=== PATIENT | female | born 1950 | race Caucasian/White ===

== ENCOUNTER 2019-06-23 11:00 | Outpatient (CLI) | payer MEDICARE, BC ==
[2019-06-23 12:11] LABS: BASOPHILS # (AUTO) 0.1 X10'3 (0-0.2); BASOPHILS % (AUTO) 0.8 % (0-1); EOSINOPHILS # (AUTO) 0.2 X10'3 (0-0.9); EOSINOPHILS % (AUTO) 2.4 % (0-6); HEMOGLOBIN 14.5 g/dl (12.0-16.0); LYMPHOCYTES # (AUTO) 1.3 X10'3 (1.1-4.8); LYMPHOCYTES % (AUTO) 19.1 % (21-51); MEAN CORPUSCULAR HEMOGLOBIN 28.4 PG (27.0-31.0); MEAN CORPUSCULAR VOLUME 85.9 FL (78-98); MEAN PLATELET VOLUME 7.6 FL (7.4-10.4); MONOCYTES # (AUTO) 0.7 X10'3 (0-0.9); MONOCYTES % (AUTO) 10.2 % (2-12); NEUTROPHILS # (AUTO) 4.6 X10'3 (1.8-7.7); NEUTROPHILS % (AUTO) 67.5 % (42-75); PLATELET COUNT 298 X10'3 (140-440); RED BLOOD COUNT 5.12 X10'6 (4.20-5.60); RED CELL DISTRIBUTION WIDTH 14.1 % (11.5-14.5); WHITE BLOOD COUNT 6.8 X10'3 (4.5-11.0)
[2019-06-23 12:21] LABS: PARTIAL THROMBOPLASTIN TIME 28 SECONDS (22-32)
[2019-06-23 12:33] LABS: ALANINE AMINOTRANSFERASE 48 U/L (12-78); ALBUMIN 3.8 G/DL (3.4-5.0); ALBUMIN/GLOBULIN RATIO 0.9 (1.1-1.5); ALKALINE PHOSPHATASE 97 IU/L (46-116); ANION GAP 8 (8-16); ASPARTATE AMINO TRANSFERASE 29 U/L (10-37); BILIRUBIN,TOTAL 0.2 MG/DL (0.1-1.0); BLOOD UREA NITROGEN 15 MG/DL (7-18); CALCIUM 10.9 MG/DL (8.5-10.1); CHLORIDE 104 MMOL/L (99-107); CREATININE 0.88 MG/DL (0.40-0.90); GLUCOSE 92 MG/DL (70-104); POTASSIUM 4.1 MMOL/L (3.5-5.1); SODIUM 142 MMOL/L (135-145); TOTAL CARBON DIOXIDE 29.9 MMOL/L (24-32); TOTAL PROTEIN 8.1 G/DL (6.4-8.2); eGFR 64 ML/MIN
== END 2019-06-23 23:59 | disposition home or self-care (01) ==
LOC: LAB 11:00
PROVIDERS: ATTEND Otolaryngology
DX: D69.1 Qualitative platelet defects (principal)
CPT/HCPCS: 36415; 80053; 85025; 85576; 85610; 85730

== ENCOUNTER 2020-03-05 09:28 | Emergency (ER) | payer MEDICARE, BC ==
[~2020-03-05] VITALS: Ht 162.6 cm; Wt 81.8 kg
[2020-03-05 10:58] VITALS: BP 128/83
[2020-03-10] MEDS ORDERED: IBUP-1985 PO (11:38)
[2020-03-10] MEDS ORDERED: ZOLP10TA PO (11:38)
[2020-03-10] MEDS ORDERED: ROSU10TA28 PO (11:38)
[2020-03-10] MEDS ORDERED: BUDE8.435 BOTHNARES (11:38)
[2020-03-10] MEDS ORDERED: DULO60CA65 PO (11:38)
[2020-03-10] MEDS ORDERED: LIOT5TAB10 PO (11:38)
[2020-03-10] MEDS ORDERED: LOSA50TA64 PO (11:38)
[2020-03-10] MEDS ORDERED: LEVO100T PO (11:38)
== END 2020-03-05 10:59 | disposition home or self-care (01) ==
LOC: ER 09:28
DX: S82.62XA Displaced fracture of lateral malleolus of left fibula, initial encounter for closed fracture (principal); E78.00 Pure hypercholesterolemia, unspecified; I10 Essential (primary) hypertension; W06.XXXA Fall from bed, initial encounter; Y93.89 Activity, other specified; Y92.89 Other specified places as the place of occurrence of the external cause; Y99.8 Other external cause status
CPT/HCPCS: 73610; 99284

== ENCOUNTER 2020-03-14 13:30 | Day surgery (SDC) | payer MEDICARE, BC ==
[2020-03-10 11:55] LABS: BASOPHILS % (AUTO) 0.8 % (0-1); EOSINOPHILS # (AUTO) 0.2 X10'3 (0-0.9); EOSINOPHILS % (AUTO) 3.5 % (0-6); LYMPHOCYTES # (AUTO) 1.2 X10'3 (1.1-4.8); LYMPHOCYTES % (AUTO) 20.1 % (21-51); MEAN CORPUSCULAR HEMOGLOBIN 28.9 PG (27.0-31.0); MEAN CORPUSCULAR HGB CONC 32.8 g/dL (33.0-36.5); MEAN CORPUSCULAR VOLUME 87.9 FL (78-98); MONOCYTES # (AUTO) 0.6 X10'3 (0-0.9); MONOCYTES % (AUTO) 9.2 % (2-12); NEUTROPHILS % (AUTO) 66.4 % (42-75); PRE OP HEMATOCRIT 39.4 % (35.0-45.0); PRE OP HEMOGLOBIN 12.9 g/dL (12.0-16.0); PRE OP PLATELET COUNT 308 X10'3 (140-440); RED BLOOD COUNT 4.48 X10'6 (4.20-5.60); RED CELL DISTRIBUTION WIDTH 12.6 % (11.5-14.5)
[2020-03-10 12:12] LABS: ALBUMIN 3.3 G/DL (3.4-5.0); ALBUMIN/GLOBULIN RATIO 0.8 (1.1-1.5); ALKALINE PHOSPHATASE 86 IU/L (46-116); BLOOD UREA NITROGEN 13 MG/DL (7-18); BUN/CREATININE RATIO 15.1 (6.6-38.0); CALCIUM 9.9 MG/DL (8.5-10.1); CHLORIDE 105 MMOL/L (99-107); CREATININE 0.86 MG/DL (0.40-0.90); PRE OP ALT 23 U/L (30-65); PRE OP ANION GAP 6 (8-16); PRE OP AST 20 U/L (10-37); PRE OP BILIRUB, TOTAL 0.3 MG/DL (0.0-1.0); PRE OP GLUCOSE 91 MG/DL (70-104); PRE OP POTASSIUM 4.7 MMOL/L (3.4-5.1); PRE OP SODIUM 143 MMOL/L (135-145); TOTAL PROTEIN 7.3 G/DL (6.4-8.2); eGFR 66 ML/MIN
[2020-03-14] VITALS (9 sets, daily range): BP systolic 144–178; BP diastolic 75–100
[~2020-03-14] VITALS: Ht 162.6 cm; Wt 94.4 kg
[~2020-03-14 13:30] MED LIST: BUDE8.435 BOTHNARES; DULO60CA65 PO; IBUP-1985 PO; LEVO100T PO; LIOT5TAB10 PO; LOSA50TA64 PO; ROSU10TA28 PO; ZOLP10TA PO; ceFAZolin 2gm in dextrose, iso 50 ML IV ONE; famotidine 20mg tablet PO ONE; ringers solution, lacted 1,000 ML IV SCH
[2020-03-14] MEDS ORDERED: sevoflurane 250ml liquid IH ONE (17:10)
[2020-03-14] MEDS ORDERED: flumazenil 0.1 mg/ml inj. IV ONE (17:10)
[2020-03-14] MEDS ORDERED: midazolam 2 mg/2 ml injection ONE ×2 (17:17→17:18)
[2020-03-14] MEDS ORDERED: fentaNYL/PF 50MCG/1 ML 2ML syringe ONE ×2 (17:17→17:47)
[2020-03-14] MEDS ORDERED: propofol inj 20 ML IV ONE (17:48)
[2020-03-14] MEDS ORDERED: LIDOcaine 2% (20mg/ml) 5ml vial ONE (17:48)
[2020-03-14] MEDS ORDERED: glycopyrrolate 0.2mg/ml inj ONE (17:48)
[2020-03-14] MEDS ORDERED: ROPIVAcaine 0.5% (5mg/ml) 30ml vial ONE (17:48)
[2020-03-14] MEDS ORDERED: ondansetron/PF 4mg/2ml inj ONE (17:48)
[2020-03-14] MEDS ORDERED: rocuronium 10mg/ml inj IV ONE (17:48)
[2020-03-14] MEDS ORDERED: neostigmine methylsulfate 1 MG/ML 10ml vial ONE (17:48)
[2020-03-14] MEDS ORDERED: dexamethasone sod phosphate 4mg/ml inj. ONE (17:48)
[2020-03-14] MEDS ORDERED: ringers solution, lacted 1,000 ML IV SCH (18:08)
[2020-03-14] MEDS ORDERED: proCHLORperazine 10 MG/2 ml inj IV PRN (18:10)
[2020-03-14] MEDS ORDERED: morphine 4 MG/ML inj SYRINge IV PRN (18:10)
[2020-03-14] MEDS ORDERED: morphine 2 MG/ML inj. syringe IV PRN (18:10)
[2020-03-14] MEDS ORDERED: meperidine/PF 25mg/ml syringe IV PRN ×3 (18:10)
[2020-03-14] MEDS ORDERED: ondansetron/PF 4mg/2ml inj IV PRN (18:10)
[2020-03-14] MEDS ORDERED: BUPIVAcaine/PF 2.5 mg/ml (0.25%) 30ml vial ONE (18:11)
[2020-03-14] MEDS ORDERED: acetaminophen 1,000mg/100ml IV 100 ML IV ONE (18:11)
--- NOTE | 2020-03-14 18:45 | NUR ---
Received from OR via [facility], accompanied by Anesthesiologist DR ASHRAF and report given by Anesthesiologist. PT DROWSY, DENIES PAIN, LEFT FOOT W/4X4 GAUZE AND WEB ROLL COVERING AWAITING PATIENT FINANCIAL ADVOCATE FOR A CADALAC SPLINT. Addendum: 03/14/20 at 1910 by Amy Salamanca RN Amended: Links added.
[2020-03-14] MEDS ORDERED: ipratropium/albuterol 3ml nebule NEB SCH (18:50)
[2020-03-14] MEDS ORDERED: labetalol 20mg/4ml (5mg/ml) syringe IV ONE ×2 (18:55)
[2020-03-14] MEDS ORDERED: albuterol 60 PUFF/8GM Inhaler IH ONE (18:57)
--- NOTE | 2020-03-14 19:15 | NUR ---
MUSCULOSKELETAL PHYSICIAN HERE AND PLACED CADILAC CAST ON PT. Addendum: 03/14/20 at 1939 by Amy Salamanca RN Amended: Links added.
[2020-03-14] MEDS ORDERED: traMADol 50MG tablet PO ONE (20:00)
--- NOTE | 2020-03-14 20:20 | NUR ---
D/C INSTRUCTIONS GONE OVER AND GIVEN TO PT, ALSO WENT OVER PTS D/C INSTRUCTIONS W/PTS , BOTH VERBALIZE UNDERSTANDING, PT D/CD TO HOME VIA W/C TO PRIVATE VEHICLE W/O INCIDENT. Addendum: 03/14/20 at 2026 by Amy Salamanca RN Amended: Links added.
== END 2020-03-14 20:20 | disposition home or self-care (01) ==
LOC: PAS 13:30
PROVIDERS: ATTEND Orthopaedic Surgery
DX: S82.62XA Displaced fracture of lateral malleolus of left fibula, initial encounter for closed fracture (principal); G89.18 Other acute postprocedural pain; E03.9 Hypothyroidism, unspecified; I10 Essential (primary) hypertension; E66.9 Obesity, unspecified; Z68.35 Body mass index [BMI] 35.0-35.9, adult; Z79.899 Other long term (current) drug therapy; Z11.59 Encounter for screening for other viral diseases; Z98.890 Other specified postprocedural states; Z87.01 Personal history of pneumonia (recurrent); Z82.49 Family history of ischemic heart disease and other diseases of the circulatory system; Z83.3 Family history of diabetes mellitus; W06.XXXA Fall from bed, initial encounter; Y93.89 Activity, other specified; Y92.89 Other specified places as the place of occurrence of the external cause; Y99.8 Other external cause status
CPT/HCPCS: 27792; 36415; 64450; 80053; 82948; 85025; 93005; 94640; 94760; C1713; J0131; J1100; J2001; J2175; J2250; J2405; J2704; J2710; J3010; J3490; U0003; A4215; A4618; A6449; A7000; J2795; J7120